=== PATIENT | male | born 1930 | race Caucasian/White ===

== ENCOUNTER 2017-10-01 09:45 | Observation (INO) | payer MEDICARE, OTHER ==
[~2017-10-01] VITALS: Ht 180.3 cm; Wt 91.5 kg
[2017-10-01] MEDS ORDERED: SODIUM CHLORIDE FLUSH 10ML SYR IVF ONE (10:30)
[2017-10-01 10:43] LABS: BASOPHILS # (AUTO) 0.01 x10^3/uL (0-0.1); BASOPHILS % (AUTO) 0 % (0-1); EOSINOPHILS # (AUTO) 1.34 x10^3/uL (0-0.4); EOSINOPHILS % (AUTO) 19 % (1-7); LYMPHOCYTES % (AUTO) 18 % (22-44); MD NO; MEAN CORPUSCULAR HEMOGLOBIN 28.4 pg (27.5-34.5); MEAN CORPUSCULAR HGB CONC 32.6 g/dL (33.2-36.2); MEAN CORPUSCULAR VOLUME 87.2 fL (81-97); MONOCYTES # (AUTO) 0.49 x10^3/uL (0.2-0.8); MONOCYTES % (AUTO) 7 % (2-9); NEUTROPHILS # (AUTO) 3.96 x10^3/uL (1.8-6.8); NEUTROPHILS % (AUTO) 56 % (42-75); PLATELET COUNT 163 x10^3/uL (130-400); RED BLOOD COUNT 4.84 x10^6/uL (4.38-5.82); RED CELL DISTRIBUTION WIDTH 14.8 % (9.4-14.8)
[2017-10-01 10:50] LABS: INTERNATIONAL NORMALIZED RATIO 1.01 (0.93-1.1); PROTHROMBIN TIME 10.4 Seconds (9.6-11.5)
[2017-10-01 10:56] LABS: ALBUMIN 3.3 g/dL (3.4-5.0); ANION GAP 7 mmol/L (5-15); CALCIUM 8.3 mg/dL (8.5-10.1); CHLORIDE 106 mmol/L (98-107)
[2017-10-01 11:03] LABS: ALANINE AMINOTRANSFERASE 64 U/L (12-78); ALKALINE PHOSPHATASE 229 U/L (45-117); BILIRUBIN,TOTAL 0.5 mg/dL (0.2-1.0); CREATININE 0.98 mg/dL (0.7-1.3); TOTAL PROTEIN 7.5 g/dL (6.4-8.2); TROPONIN I < 0.015 ng/mL (0.000-0.045)
[2017-10-01] MEDS ORDERED: ALLE10VI19 PO (11:33)
[2017-10-01] MEDS ORDERED: GABA300C10 PO (11:33)
[2017-10-01] MEDS ORDERED: TAMS0.4C2 PO (11:33)
[2017-10-01] MEDS ORDERED: FLUT9.9S INH (11:33)
[2017-10-01] MEDS ORDERED: GUAI-103 PO (11:33)
[2017-10-01] MEDS ORDERED: FLUT1DIS3 INH (11:33)
[2017-10-01] MEDS ORDERED: ASPI-496 PO (11:33)
[2017-10-01] MEDS ORDERED: OMEG1CAP39 PO (11:33)
[2017-10-01] MEDS ORDERED: ALBU18HF INH (11:33)
[2017-10-01] MEDS ORDERED: FINA5TAB4 PO (11:33)
[2017-10-01] MEDS ORDERED: GINK60TA PO (11:33)
[2017-10-01] MEDS ORDERED: NIAC1000 PO (11:33)
[2017-10-01] MEDS ORDERED: OXYC5CAP2 PO (11:33)
[2017-10-01] MEDS ORDERED: UBID10CA5 PO (11:34)
[2017-10-01] MEDS ORDERED: SODIUM CHLORIDE FLUSH 10ML SYR IVF PRN (12:00)
[2017-10-01 13:00] VITALS: BP 137/86
[2017-10-01] MEDS ORDERED: ALBUTEROL SULFATE 2.5 MG/3 ML NPPB PRN (14:00)
[2017-10-01] MEDS ORDERED: ACETAMINOPHEN 325 MG TABLET PO PRN (14:00)
[2017-10-01 14:17] LABS: FREE T4 (FREE THYROXINE) 0.87 ng/dL (0.76-1.46); THYROID STIMULATING HORMONE 1.51 mIU/L (0.358-3.740)
[2017-10-01] MEDS: SODIUM CHLORIDE 0.9% 1,000 ML IV SCH ×2 (14:25→23:13)
[2017-10-01 14:48] VITALS: BP 137/86
[2017-10-01 15:40] LABS: HEMOGLOBIN A1C 5.4 % (4.2-6.3)
[2017-10-01 16:19] LABS: MICROSCOPIC NOT IND
[2017-10-01 16:24] LABS: CULTURE INDICATED? NO
[2017-10-01] MEDS: OXYcodone IR 5MG TABLET PO SCH ×2 (16:58→20:13)
[2017-10-01 20:14] VITALS: BP 135/81
[2017-10-01] MEDS ORDERED: TAMSULOSIN 0.4 MG CAP.ER.24H PO SCH (21:00)
[2017-10-01] MEDS: FLUTICASONE/VILANTEROL 100-25MCG/INH INH SCH (21:00)
[2017-10-01] MEDS ORDERED: ATORVASTATIN 40 MG TABLET PO SCH (21:00)
[2017-10-01] MEDS ORDERED: OMEGA-3/FISH OIL CAPSULE PO SCH (21:00)
[2017-10-02 01:45] VITALS: BP 130/78
[2017-10-02 05:04] LABS: BASOPHILS # (AUTO) 0.03 x10^3/uL (0-0.1); BASOPHILS % (AUTO) 0 % (0-1); EOSINOPHILS % (AUTO) 20 % (1-7); LYMPHOCYTES # (AUTO) 1.39 x10^3/uL (1-3.4); LYMPHOCYTES % (AUTO) 17 % (22-44); MD NO; MEAN CORPUSCULAR HEMOGLOBIN 28.7 pg (27.5-34.5); MEAN CORPUSCULAR HGB CONC 32.8 g/dL (33.2-36.2); MEAN CORPUSCULAR VOLUME 87.6 fL (81-97); MONOCYTES # (AUTO) 0.73 x10^3/uL (0.2-0.8); MONOCYTES % (AUTO) 9 % (2-9); NEUTROPHILS # (AUTO) 4.56 x10^3/uL (1.8-6.8); NEUTROPHILS % (AUTO) 54 % (42-75); PLATELET COUNT 160 x10^3/uL (130-400); RED BLOOD COUNT 4.82 x10^6/uL (4.38-5.82); RED CELL DISTRIBUTION WIDTH 15.1 % (9.4-14.8)
[2017-10-02 05:14] LABS: ANION GAP 7 mmol/L (5-15); CALCIUM 7.9 mg/dL (8.5-10.1); CHLORIDE 107 mmol/L (98-107)
[2017-10-02 05:17] LABS: CHOL/HDL RATIO 3.2; CHOLESTEROL, TOTAL 143 mg/dL (140-239); CREATININE 0.78 mg/dL (0.7-1.3); HDL CHOL % 31 % (26-37); HDL CHOLESTEROL (DIRECT) 45 mg/dL (40-60); LDL CHOLESTEROL,CALCULATED 70 mg/dL (54-169); LDL/HDL RATIO 1.6 (0.5-3.0); TRIGLYCERIDES 138 mg/dL (50-200); VLDL CHOLESTEROL 28 mg/dL (0-25)
[2017-10-02] MEDS ORDERED: ASPIRIN 325 MG TABLET EC PO SCH (06:00)
[2017-10-02] MEDS: SODIUM CHLORIDE 0.9% 1,000 ML IV SCH (06:04)
[2017-10-02] MEDS: OXYcodone IR 5MG TABLET PO SCH (07:59)
[2017-10-02 08:01] VITALS: BP 136/79
[2017-10-02] MEDS ORDERED: FINASTERIDE 5 MG TABLET PO SCH (09:00)
[2017-10-02] MEDS ORDERED: ASPIRIN 81 MG TABLET CHEW PO/NG SCH (09:00)
[2017-10-02] MEDS ORDERED: OMEGA-3/FISH OIL CAPSULE PO SCH (09:00)
[2017-10-02] MEDS ORDERED: ATOR40TA78 PO (09:38)
[2017-10-02] MEDS ORDERED: ASPI-650 PO (09:38)
[2017-10-02] MEDS: FLUTICASONE/VILANTEROL 100-25MCG/INH INH SCH (10:27)
== END 2017-10-02 12:24 | disposition home or self-care (01) ==
LOC: ED 11:37 → INTOOBSV 11:41 → EDIP 11:41 → 4WST 13:15
PROVIDERS: ADMIT Internal Medicine; ATTEND Hospitalist
DX: G45.9 Transient cerebral ischemic attack, unspecified (principal); J44.9 Chronic obstructive pulmonary disease, unspecified; G62.9 Polyneuropathy, unspecified; J32.4 Chronic pansinusitis; Z80.6 Family history of leukemia; Z85.048 Personal history of other malignant neoplasm of rectum, rectosigmoid junction, and anus; Z87.891 Personal history of nicotine dependence; R47.01 Aphasia; Z79.899 Other long term (current) drug therapy
CPT/HCPCS: 36415; 70450; 70551; 71045; 80048; 80053; 80061; 81003; 82977; 83036; 83735; 84100; 84439; 84443; 84484; 85025; 85610; 85730; 92610; 93005; 93306; 93880; 96360; 96361; 97162; 97166; 99285; G0378; G8978; G8979; G8980; G8996; G8997; G8998; J7030

== ENCOUNTER → 2017-10-06 | Outpatient (CLI) | payer MEDICARE, OTHER ==
[~2017-10-06] MED LIST: ALBU18HF INH; ALLE10VI19 PO; ASPI-496 PO; ASPI-650 PO; ATOR40TA78 PO; FINA5TAB4 PO; FLUT1DIS3 INH; FLUT9.9S INH; GABA300C10 PO; GINK60TA PO; GUAI-103 PO; NIAC1000 PO; OMEG1CAP39 PO; OXYC5CAP2 PO; TAMS0.4C2 PO; UBID10CA5 PO
== END | disposition home or self-care (01) ==
LOC: CFH 10:11
PROVIDERS: ATTEND Internal Medicine Cardiovascular Disease
DX: I71.4 Abdominal aortic aneurysm, without rupture (principal)
CPT/HCPCS: 93978